=== PATIENT | male | born 1970 | race Caucasian/White ===

== ENCOUNTER 2019-04-27 10:53 | Inpatient (IN) | payer MEDICAID ==
[~2019-04-27] VITALS: Ht 188 cm; Wt 93.0 kg
[2019-04-27 11:52] VITALS: BP_SYST 163
--- NOTE | 2019-04-27 12:01 | NUR ---
Patient to ER bed 08 to gown for evaluation. Side rails up.
--- NOTE | 2019-04-27 12:02 | NUR ---
Pt brought by self, A&Ox4, pt presents to ER with redness /swelling on nose, pt is being treated for cellulitis with ampicillin, skin pink and warm, cap refill <3, ambulatory, respirations even and unlabored.
--- NOTE | 2019-04-27 12:10 | NUR ---
ER at bedside examining patient.
[2019-04-27] MEDS ORDERED: NACL 0.9% 1,000 ML IV ONE (12:27)
[2019-04-27] MEDS ORDERED: MORPHINE 4 MG/ML INJ. SYRINGE IVP ONE (12:30)
[2019-04-27] MEDS ORDERED: CLINDAMYCIN 900 mg/50mL D5W 50 ML IV ONE (12:30)
[2019-04-27] MEDS ORDERED: ONDANSETRON HCL 4 MG/2 ML VIAL IVP ONE (12:30)
[2019-04-27] MEDS ORDERED: NS 1000 ML IV.SOLN IV ONE (12:30)
[2019-04-27 13:13] LABS: BASOPHILS # (AUTO) 0.1 K/uL (0.0-0.2); BASOPHILS % (AUTO) 0.4 % (0.0-2.0); EOSINOPHILS # (AUTO) 0.1 K/uL (0.0-0.4); EOSINOPHILS % (AUTO) 0.6 % (0.0-4.0); HEMATOCRIT 47.9 % (36-54); HEMOGLOBIN 16.1 g/dL (14.0-18.0); LYMPHOCYTES # (AUTO) 2.4 K/uL (1.0-5.5); LYMPHOCYTES % (AUTO) 13.1 % (20.5-51.5); MEAN CORPUSCULAR HEMOGLOBIN 32 pg (27-31); MEAN CORPUSCULAR HGB CONC 34 % (32-36); MEAN CORPUSCULAR VOLUME 95 fL (79.0-98.0); MONOCYTES # (AUTO) 1.8 K/uL (0.0-1.0); MONOCYTES % (AUTO) 10.1 % (1.7-9.3); NEUTROPHILS # (AUTO) 13.6 K/uL (1.8-7.7); NEUTROPHILS % (AUTO) 75.8 % (40.0-70.0); PLATELET COUNT (AUTO) 258 K/uL (130-430); RED BLOOD CELL COUNT(AUTO) 5.04 MIL/uL (4.2-6.2); RED CELL DISTRIBUTION WIDTH 12.6 % (9.0-15.0); WHITE BLOOD COUNT (AUTO) 17.9 K/uL (4.8-10.8)
[2019-04-27 13:26] LABS: CALCIUM 8.9 mg/dL (8.4-11.0); CREATININE 0.81 mg/dL (0.55-1.30); POTASSIUM 4.1 mmol/L (3.5-5.1)
[2019-04-27 13:29] LABS: PROTHROMBIN TIME 9.6 SECS (9.5-12.5)
[2019-04-27 13:31] LABS: TOTAL BILIRUBIN 0.5 mg/dL (0.0-1.0)
[2019-04-27] MEDS ORDERED: ACETAMINOPHEN 325 MG TABLET PO PRN ×2 (15:30→16:45)
[2019-04-27] MEDS ORDERED: NS 500 ML IV ONE (15:30)
--- NOTE | 2019-04-27 15:44 | NUR ---
MEDSURGPatient will be admitted to care of DR. DANIELLE. Admitted to MEDSURG unit. Will go to room 120B. Belongings list completed. Complete and up to date summary report printed. SBAR report to be given at bedside with opportunity for questions.
--- NOTE | 2019-04-27 15:49 | NUR ---
Admission Note Received patient from ER with diagnosis of facial cellulitis. Initial Plan of Care discussed-patient verbalized understanding. . Oriented to room, call light, pain management and safety.
[2019-04-27 16:11] VITALS: BP_SYST 154
[2019-04-27 16:20] VITALS: BP_SYST 154
--- NOTE | 2019-04-27 16:20 | NUR ---
Called consult to Dr. Hyatt's office regarding facial cellulitis, spoke with Helen.
[2019-04-27] MEDS ORDERED: SODIUM CHLORIDE 0.65% NASAL SPRAY NS PRN (16:45)
[2019-04-27] MEDS ORDERED: ONDANSETRON HCL 4 MG/2 ML VIAL IVP PRN (16:45)
[2019-04-27] MEDS ORDERED: NICOTINE 21 MG/24 HR PATCH.TD24 TD ONE (16:45)
[2019-04-27] MEDS ORDERED: VANCOMYCIN HCL 1,750 MG in NS 500 ML IV SCH (17:00)
--- NOTE | 2019-04-27 17:04 | NUR ---
ID consult called: for Dr. Littlejohn, regarding sinusitis, ordered by Dr. Arias, spoke with Tania.
[2019-04-27] MEDS: MORPHINE 4 MG/ML INJ. SYRINGE IVP PRN ×2 (17:47→22:27)
--- NOTE | 2019-04-27 17:52 | NUR ---
MORPHINE GIVEN Patient c/o nose pain 11/01, Morphine 3mg IVP given as ordered. No acute distress. Safety measure maintained. Call light within reached. Bed locked in low position, side rails up. Continue to monitor.
[2019-04-27] MEDS: VANCOMYCIN HCL 1,750 MG in NS 500 ML IV SCH (18:34)
--- NOTE | 2019-04-27 18:40 | NUR ---
CLOSING NOTE Patient resting in the bed. No acute distress. Skin warm and dry to touch. IV intact to LAC, no redness, no swelling, no drainage, infusing Vancomycin at this time. Safety measure maintained. Call light within reached. Bed locked in low position, side rails up. Refused bed alarm, risk and benefit explained. Will endorse to night nurse.
--- NOTE | 2019-04-27 19:03 | NUR ---
SEEN AND EXAMINED BY [facility]CO HEREDIA WITH ORDER RECEIVED.
--- NOTE | 2019-04-27 19:30 | NUR ---
SPECIMEN FROM LEFT NOSE OF WOUND SENT TO LAB.
[2019-04-27 20:05] VITALS: BP_SYST 152
--- NOTE | 2019-04-27 20:05 | NUR ---
Opening notes Pt resting in bed, eyes closed, VSS, afebrile, no s/s distress noted. L. nares crusty wound dry, no drainage noted. Nose swollen and erythema noted. Photo taken. Call light within reach. Bed low, locked, siderails up x2, pt ambulates to bathroom, steady gait. To monitor.
--- NOTE | 2019-04-27 20:25 | NUR ---
IV re-start IV L. AC leaking. Dc'd IV catheter tip intact, no active bleeding. Restarted new IV L. wrist 22G via aseptic technique, good blood return. Pt tolerated well. Continued IV Vanco as ordered. To monitor.
[2019-04-27] MEDS ORDERED: PIPERACILLIN/TAZO 4.5 GM in NS 100 ML IV ONE (22:00)
[2019-04-27] MEDS: PIPERACILLIN/TAZO 4.5 GM in NS 100 ML IV SCH (22:30)
[2019-04-28 00:05] VITALS: BP_SYST 137
--- NOTE | 2019-04-28 00:10 | NUR ---
Rounds Pt asleep, easily arousable, no s/s distress noted. VSS, afebrile. Call light remains within reach. Safety maintained. To monitor.
--- NOTE | 2019-04-28 04:10 | NUR ---
Rounds Pt asleep, easily arousable, no s/s distress noted. VSS, afebrile. Call light remains within reach. Safety maintained. Bed low, locked, siderails up x2. To monitor.
[2019-04-28] MEDS: PIPERACILLIN/TAZO 4.5 GM in NS 100 ML IV SCH ×2 (05:19→14:09)
[2019-04-28] MEDS: MORPHINE 4 MG/ML INJ. SYRINGE IVP PRN ×5 (05:32→23:59)
--- NOTE | 2019-04-28 05:32 | NUR ---
Closing notes Pt awake, c/o 8/10 pain/throat pain. Medicated with Morphine 3mg IVP as needed. IV antibiotic infusing at ordered rate L. wrist 22G clear and patent. Call light within reach. Safety maintained. To endorse to AM nurse.
[2019-04-28 06:37] LABS: BASOPHILS # (AUTO) 0.1 K/uL (0.0-0.2); BASOPHILS % (AUTO) 0.5 % (0.0-2.0); EOSINOPHILS # (AUTO) 0.2 K/uL (0.0-0.4); EOSINOPHILS % (AUTO) 1.1 % (0.0-4.0); HEMATOCRIT 44.4 % (36-54); HEMOGLOBIN 15.1 g/dL (14.0-18.0); LYMPHOCYTES # (AUTO) 2.7 K/uL (1.0-5.5); LYMPHOCYTES % (AUTO) 16.9 % (20.5-51.5); MEAN CORPUSCULAR HEMOGLOBIN 32 pg (27-31); MEAN CORPUSCULAR HGB CONC 34 % (32-36); MEAN CORPUSCULAR VOLUME 94 fL (79.0-98.0); MONOCYTES # (AUTO) 1.8 K/uL (0.0-1.0); MONOCYTES % (AUTO) 11.5 % (1.7-9.3); NEUTROPHILS # (AUTO) 11.2 K/uL (1.8-7.7); PLATELET COUNT (AUTO) 271 K/uL (130-430); RED CELL DISTRIBUTION WIDTH 12.4 % (9.0-15.0)
[2019-04-28] MEDS: VANCOMYCIN HCL 1,750 MG in NS 500 ML IV SCH ×2 (06:39→18:56)
[2019-04-28 06:58] LABS: ALBUMIN 3.5 g/dL (3.4-4.8); CALCIUM 8.6 mg/dL (8.4-11.0); CREATININE 0.72 mg/dL (0.55-1.30); POTASSIUM 4.5 mmol/L (3.5-5.1); TOTAL BILIRUBIN 0.9 mg/dL (0.0-1.0)
--- NOTE | 2019-04-28 07:40 | NUR ---
OPENING NOTES: RECEIVED PATIENT FROM CARTON REPAIRER NURSE. PATIENT IS ASLEEP LAYING DOWN IN BED. PATIENT IS TOLERATING OXYGEN AT ROOM AIR WITH NO SIGNS OF DISTRESS OR SHORTNESS OF BREATH NOTED. IV SITE IS PATENT WITH NO SIGNS OF INFILTRATION NOTED. PATIENT IN STABLE CONDITION. SAFETY, FALL AND ASPIRATION PRECAUTIONS ARE IN PLACE. BED IS LOCKED IN LOWEST POSITION WITH CALL LIGHT IN REACH. WILL CONTINUE TO MONITOR PATIENT FOR ANY CHANGES.
[2019-04-28 08:30] VITALS: BP_SYST 158
[2019-04-28] MEDS: NICOTINE 21 MG/24 HR PATCH.TD24 TD SCH (08:52)
--- NOTE | 2019-04-28 10:31 | NUR ---
RN ROUNDS: PATIENT IS AWAKE AND ALERT x4 LAYING DOWN IN BED. PATIENT STATES HIS PAIN IS TOLERABLE AT THE MOMENT. NO SIGNS OF DISTRESS OR SHORTNESS OF BREATH NOTED. PATIENT IN STABLE CONDITION. WILL CONTINUE TO MONITOR PATIENT FOR ANY CHANGES.
[2019-04-28 10:33] LABS: ERYTHROCYTE SEDIMENTATION RATE 29 MM/HR (0-15)
--- NOTE | 2019-04-28 12:28 | NUR ---
RN ROUNDS: PATIENT IS ASLEEP LAYING DOWN IN BED. NO SIGNS OF DISTRESS OR SHORTNESS OF BREATH NOTED. PATIENT IN STABLE CONDITION. WILL CONTINUE TO MONITOR PATIENT FOR ANY CHANGES.
[2019-04-28 13:04] VITALS: BP_SYST 139
--- NOTE | 2019-04-28 14:00 | NUR ---
RN ROUNDS: PATIENT IS AWAKE AND ALERT x4 LAYING DOWN IN BED. PATIENT STATES HIS PAIN IS AT AN 8/10. PRN PAIN MEDS TO BE GIVEN. PATIENT TOLERATING OXYGEN AT ROOM AIR WITH NO SIGNS OF DISTRESS OR SHORTNESS OF BREATH NOTED. PATIENT IN STABLE CONDITION. WILL CONTINUE TO MONITOR PATIENT FOR ANY CHANGES.
[2019-04-28 16:07] VITALS: BP_SYST 145
--- NOTE | 2019-04-28 16:27 | NUR ---
WOUND EVALUATION: Wound Consult received from Dr. Hyatt. Thank you, Dr. Hyatt, for the consult. Patient received in a [place] Bed with a mattress, awake, alert, and oriented. Patient is unable to turn independently. Shaun Score is a 21. Past Medical History: History of smoking. Patient admitted with severe cellulitis of Left Face and Nose. Patient reported that he removed a piece of concrete from his left nostril recently. Recent Labs: WBC 16.0, RBC 4.70, hemoglobin 15.1, hematocrit 44.4, ESR 29, Sodium 134, chloride 97. Electrolytes otherwise within normal limits. PTT 25.3. Microbiology: Blood culture results 2 in progress. Wound cultures from left nare including fungal/aerobic/anaerobic results in progress. Intrinsic factors that delay wound healing: Smoking. Extrinsic factors that delay wound healing: Decreased mobility. Wound Assessment: 1. Left Nare: Facial and nose cellulitis, present on admission, with edematous nasal tissue. Left side of face and entire nose are both erythematous. Wound with pustule present, with 90% brown scab, 10% yellow tissue, 10% pink tissue. No odor, scant yellow purulent drainage. Surrounding tissue is erythematous. Nose is warm to touch, but so is face, forehead, arms and chest. Wound measures 2.0 cm x 1.0 cm. Recommend: Cleanse wound with normal saline. Gently cover wound with Venelex ointment using cotton-tipped applicator. Apply Venelex ointment to foam dressing cut to size and gently place into Left Nare. Perform wound care daily, and as needed for dressing soiling or dislodgement. Take photos of inner nose/outer nose/reddened facial area daily per Dr. Hyatt. 2. Right Nare: Facial and nose cellulitis, present on admission, with edematous nasal tissue. No odor, no drainage. Nose is warm to touch, but so is face, forehead, arms and chest. Recommend: No dressing needed. Continue to monitor site qshift. Take photos of inner nose/outer nose/reddened facial area daily per Dr. Hyatt. Also recommend: Encourage patient to reposition every 2 hours with pillow support and off-load pressure areas with pillows for pressure re-distribution. Perform skin care and monitor skin integrity Q shift.
[2019-04-28] MEDS: SODIUM CHLORIDE 0.65% NASAL SPRAY NS SCH ×2 (17:32→21:18)
[2019-04-28] MEDS: BALSAM PERU/CASTOR OIL 60 GM OINT...G. TP SCH (17:52)
[2019-04-28] MEDS: AMPICILLIN SODIUM/SULBACTAM NA 3 GM in NS 100 ML IV SCH ×2 (17:52→21:19)
--- NOTE | 2019-04-28 18:50 | NUR ---
CLOSING NOTES: PATIENT IS AWAKE AND ALERT x4 LAYING DOWN IN BED. PATIENT IS TOLERATING OXYGEN AT ROOM AIR WITH NO SIGNS OF DISTRESS OR SHORTNESS OF BREATH NOTED. IV SITE IS PATENT WITH NO SIGNS OF INFILTRATION NOTED. PATIENT IN STABLE CONDITION. SAFETY, FALL AND ASPIRATION PRECAUTIONS REMAINED IN PLACE THROUGHOUT THE SHIFT. BED IS LOCKED IN LOWEST POSITION WITH CALL LIGHT IN REACH. WILL ENDORSE PATIENT CARE TO ONCOMING FOOD STYLIST NURSE.
[2019-04-28] MEDS: MUPIROCIN 2% TOPICAL OINTMENT 22 GM NS SCH (21:18)
[2019-04-28] MEDS: TEMAZEPAM 15 MG CAPSULE PO PRN ×2 (23:49→23:52)
[2019-04-28] MEDS: HYDROcodone/ACETAMIN 5-325 MG TAB (NORCO/ VICODIN) PO PRN ×2 (23:50→23:51)
[2019-04-29] VITALS: BP_SYST 139
[2019-04-29] MEDS: SODIUM CHLORIDE 0.65% NASAL SPRAY NS SCH ×6 (01:00→20:04)
[2019-04-29] MEDS: MORPHINE 4 MG/ML INJ. SYRINGE IVP PRN ×4 (05:44→20:04)
[2019-04-29] MEDS: AMPICILLIN SODIUM/SULBACTAM NA 3 GM in NS 100 ML IV SCH ×3 (05:53→17:09)
[2019-04-29] MEDS: VANCOMYCIN HCL 1,750 MG in NS 500 ML IV SCH ×2 (06:27→18:28)
[2019-04-29 07:31] LABS: CALCIUM 8.6 mg/dL (8.4-11.0); CREATININE 0.66 mg/dL (0.55-1.30); POTASSIUM 3.8 mmol/L (3.5-5.1)
--- NOTE | 2019-04-29 07:31 | NUR ---
OPENING NOTES: RECEIVED PATIENT FROM STEEL WELDER NURSE. PATIENT IS AWAKE AND ALERT x4 LAYING DOWN IN BED. PATIENT DENIES ANY PAIN AT THE MOMENT. PATIENT IS TOLERATING OXYGEN AT ROOM AIR WITH NO SIGNS OF DISTRESS OR SHORTNESS OF BREATH NOTED. IV SITE IS PATENT WITH NO SIGNS OF INFILTRATION NOTED. PATIENT IN STABLE CONDITION. SAFETY, FALL AND ASPIRATION PRECAUTIONS ARE IN PLACE. BED IS LOCKED IN LOWEST POSITION WITH CALL LIGHT IN REACH. WILL CONTINUE TO MONITOR PATIENT FOR ANY CHANGES.
[2019-04-29 07:58] LABS: BASOPHILS # (AUTO) 0.1 K/uL (0.0-0.2); BASOPHILS % (AUTO) 0.6 % (0.0-2.0); EOSINOPHILS # (AUTO) 0.3 K/uL (0.0-0.4); EOSINOPHILS % (AUTO) 2.2 % (0.0-4.0); HEMATOCRIT 40.7 % (36-54); HEMOGLOBIN 14.1 g/dL (14.0-18.0); LYMPHOCYTES # (AUTO) 2.3 K/uL (1.0-5.5); LYMPHOCYTES % (AUTO) 18.3 % (20.5-51.5); MEAN CORPUSCULAR HEMOGLOBIN 32 pg (27-31); MEAN CORPUSCULAR HGB CONC 35 % (32-36); MEAN CORPUSCULAR VOLUME 94 fL (79.0-98.0); MONOCYTES # (AUTO) 1.4 K/uL (0.0-1.0); MONOCYTES % (AUTO) 11.3 % (1.7-9.3); NEUTROPHILS # (AUTO) 8.4 K/uL (1.8-7.7); NEUTROPHILS % (AUTO) 67.6 % (40.0-70.0); PLATELET COUNT (AUTO) 279 K/uL (130-430); RED BLOOD CELL COUNT(AUTO) 4.34 MIL/uL (4.2-6.2); RED CELL DISTRIBUTION WIDTH 12.2 % (9.0-15.0); WHITE BLOOD COUNT (AUTO) 12.5 K/uL (4.8-10.8)
[2019-04-29 08:13] VITALS: BP_SYST 130
[2019-04-29] MEDS: NICOTINE 21 MG/24 HR PATCH.TD24 TD SCH (09:00)
[2019-04-29] MEDS: MUPIROCIN 2% TOPICAL OINTMENT 22 GM NS SCH ×2 (09:35→20:04)
[2019-04-29] MEDS: BALSAM PERU/CASTOR OIL 60 GM OINT...G. TP SCH (09:35)
[2019-04-29 12:00] VITALS: BP_SYST 143
--- NOTE | 2019-04-29 12:20 | NUR ---
RN ROUNDS/IV REINSERTION: PATIENT IS AWAKE AND ALERT x4 LAYING DOWN IN BED. IV SITE WAS PULLED OUT. CATHETER REMOVED AND INTACT WITH NO ACTIVE BLEEDING. NEW IV INSERTED IN RIGHT FOREARM 22G. ASEPTIC TECHNIQUE USED. PATIENT TOLERATED IT WELL. SUCCESSFUL AFTER ONE ATTEMPT. IV SITE PATENT WITH NO SIGNS OF INFILTRATION NOTED. PATIENT IN STABLE CONDITION. WILL CONTINUE TO MONITOR PATIENT FOR ANY CHANGES.
--- NOTE | 2019-04-29 14:15 | NUR ---
Nutrition Assessment (short note d/t high patient load) A - RD reviewed pertinent nutrition-related info via EMR (physician notes/nursing notes/labs/meds/nursing care trends/care activity). Admission Dx: Facial cellulitis Pt also found w/ sepsis per physician notes PMH: None per EMR Current Diet Order/Nutrition Support: Regular x2 days Ht: 74"/6'2" Wt: 205#/93 kg IBW: 190#/86 kg %IBW: 190#/86 kg UBW: 205#/93 kg %UBW: 100% BMI: 26.3 kg/m2 (overweight) Subjective Info: Nutrition Consult received for facial/nose cellulitis, L nare pustule/wound. Pt also seen high risk for Dx of sepsis. Pt was seen resting in bed, visually adequately-nourished for tall stature. Pt verified anthropometrics. Pt reported good appetite, tolerating diet well. Pt reported use of MVI, VIT C and D. Pt stated that he generally avoids bread, pork, red meat, and sodas, and tries to drink mostly water. Current diet is adequate/appropriate. Pt was not interested in nutrition education when offered by RD. ESTIMATED NUTRITIONAL NEEDS CALORIES/DAY: 7635-7335 kcal/day (30-35 kcal/kg CBW for sepsis, wound healing) PROTEIN/DAY: 140-186 gm/day (1.5-2 gm/kg CBW for sepsis, wound healing) FLUID/DAY: 2.8-3.3 L/day (1 ml/kcal/day for maintenance) D - Increased nutritional needs related to metabolic demands as evidenced by estimated nutritional requirements for sepsis. I - Recommend continuing regular diet M - Monitor appetite and PO intakes w/ goal of pt meeting at least 75% of estimated nutritional needs, labs trending WNL, normal GI function, and skin integrity/wt maintenance E - Low risk; RD to F/U within 7 days
--- NOTE | 2019-04-29 14:20 | NUR ---
Dietitian Recommendations * Recommend continuing regular diet LP, RD Please refer to Nutrition Assessment for details.
--- NOTE | 2019-04-29 14:41 | NUR ---
RN ROUNDS: PATIENT IS ASLEEP LAYING DOWN IN BED. NO SIGNS OF DISTRESS OR SHORTNESS OF BREATH NOTE. PATIENT IN STABLE CONDITION. WILL CONTINUE TO MONITOR PATIENT FOR ANY CHANGES.
--- NOTE | 2019-04-29 16:20 | NUR ---
RN ROUNDS: PATIENT IS AWAKE AND ALERT x4 LAYING DOWN IN BED. NO SIGNS OF DISTRESS OR SHORTNESS OF BREATH NOTED. PATIENT IN STABLE CONDITION. WILL CONTINUE TO MONITOR PATIENT FOR ANY CHANGES.
[2019-04-29 16:30] VITALS: BP_SYST 140
--- NOTE | 2019-04-29 18:50 | NUR ---
CLOSING NOTES: PATIENT IS AWAKE AND ALERT x4 LAYING DOWN IN BED. PATIENT IS TOLERATING OXYGEN AT ROOM AIR WITH NO SIGNS OF DISTRESS OR SHORTNESS OF BREATH NOTED. IV SITE IS PATENT WITH NO SIGNS OF INFILTRATION NOTED. PATIENT IN STABLE CONDITION. SAFETY, FALL AND ASPIRATION PRECAUTIONS REMAINED IN PLACE THROUGHOUT THE SHIFT. BED IS LOCKED IN LOWEST POSITION WITH CALL LIGHT IN REACH. WILL ENDORSE PATIENT CARE TO ONCOMING LUMBER GRADER NURSE.
--- NOTE | 2019-04-29 19:30 | NUR ---
Opening notes Received report. Patient is resting in bed. No signs of distress noted. Breathing even and unlabored. IV patent and intact, infusing abx. Redness and slight swelling noted to left nostril. No complaints of pain at this time. No needs. call light with the patient. Safety precautions in place.
[2019-04-29 20:44] VITALS: BP_SYST 116
--- NOTE | 2019-04-29 21:00 | NUR ---
Medications scheduled and prn pain medications given. Educated the action and side effects of medications. Patient verbalized understanding and tolerated well. No other needs. Call light with the patient. Safety precautions in place.
--- NOTE | 2019-04-29 23:30 | NUR ---
Resting Patient resting, watching TV. No signs of distress noted. Breathing even and unlabored. No needs at this time. Call light with the patient. Safety precautions in place.
[2019-04-30 00:30] VITALS: BP_SYST 112
[2019-04-30] MEDS: AMPICILLIN SODIUM/SULBACTAM NA 3 GM in NS 100 ML IV SCH ×3 (00:35→11:20)
[2019-04-30] MEDS: SODIUM CHLORIDE 0.65% NASAL SPRAY NS SCH ×4 (00:37→12:17)
[2019-04-30] MEDS: VANCOMYCIN HCL 1,250 MG in NS 250 ML IV SCH ×2 (01:56→12:16)
--- NOTE | 2019-04-30 02:00 | NUR ---
Sleeping No signs of distress noted. Breathing even and unlabored. IV ABX infusing. No needs. Call light with the patient. Safety precautions in place.
--- NOTE | 2019-04-30 04:33 | NUR ---
Sleeping No signs of distress noted. Breathing even and unlabored. call light with the patient. Safety precautions in place.
--- NOTE | 2019-04-30 06:50 | NUR ---
Closing notes Patient resting in bed. No signs of distress noted. Breathing even and unlabored. IV patent and intact, no signs of infiltration noted. No complaints of pain. All needs met throughout the shift. Call light with the patient. Safety precautions in place. Will endorse care to day shift RN.
--- NOTE | 2019-04-30 08:00 | NUR ---
ASSUMPTION OF CARE: RECEIVED PT A/A/OX4, DX:PAIN, R/T FACIAL CELLULITIS, CURRENTLY DENIES HAVING ANY PAIN, VS WNL, NO S/S OF DISTRESS, RESTING IN POSITION OF COMFORT, BREATHING EASY, HAS SOME REDNESS AND SWELLING TO NOSE AND NARES, STATES "I BELIEVE IT'S GETTING MUCH BETTER", IV SITE INTACT, PATENT, NO REDNESS OR SWELLING, ORIENTED TO UNIT, CALL LIGHT PLACED WITHIN REACH, WILL CONT' TO MONITOR AND ASSESS.
[2019-04-30 08:40] VITALS: BP_SYST 119
--- NOTE | 2019-04-30 09:00 | NUR ---
SET UP AND LAY OUT INSPECTOR: MORNING MEDS GIVEN, PER ORDERED BY Jeff, TOLERATED WELL, WILL CONT' TO MONITOR, WILL CONT' WITH POC.
[2019-04-30] MEDS: BALSAM PERU/CASTOR OIL 60 GM OINT...G. TP SCH (10:16)
[2019-04-30] MEDS: MUPIROCIN 2% TOPICAL OINTMENT 22 GM NS SCH (10:16)
[2019-04-30] MEDS: NICOTINE 21 MG/24 HR PATCH.TD24 TD SCH (10:16)
--- NOTE | 2019-04-30 11:00 | NUR ---
VISIT: DR. DANIELLE AT BEDSIDE FOR ASSESSMENT OF PT, NEW ORDERS GIVEN, WILL CONT' WITH POC.
[2019-04-30] MEDS ORDERED: AMOX-426 PO (11:37)
[2019-04-30] MEDS ORDERED: DOXY100C PO (11:39)
[2019-04-30] MEDS ORDERED: LACT1TAB21 PO (11:41)
[2019-04-30] MEDS ORDERED: BACTROBAN TP (11:49)
--- NOTE | 2019-04-30 12:00 | NUR ---
NURSES NOTES: PT REMAINS STABLE, ASLEEP IN BED, EASILY AROUSED VIA VERBAL STIMULI, NO SIGNIFICANT CHANGES NOTED AT THIS TIME, NEEDS MET, IRIS LIGHT PLACED WITHIN REACH, WILL CONT' TO MONITOR AND ASSESS.
[2019-04-30 12:19] VITALS: BP_SYST 115
--- NOTE | 2019-04-30 13:30 | NUR ---
DISCHARGE: PT HAS ORDER FOR DISCHARGE TO HOME, F/U IN [facility] WITH [facility] IN ONE WEEK, VERBALIZES UNDERSTANDING, PROVIDE WITH A LIST OF THE [facility] FACILITIES. CONDITION IS STABLE, ALL BELONGINGS ACCOUNTED FOR AND RETURNED TO PT, ACCOMPANIED BY STAFF TO PARKING LOT WITH STEADY GAIT.
--- NOTE | 2019-04-30 13:30 | NUR ---
Per RN request YAMILETH provided Pt. with [facility] list for follow up care. He received the info, no further inquiry
[2019-04-30 14:25] VITALS: BP_SYST 115
== END 2019-04-30 16:25 | disposition home or self-care (01) | DRG 720 ==
LOC: SED 10:53 → SMU 15:24
PROVIDERS: ADMIT Internal Medicine; ATTEND Internal Medicine
DX: A41.9 Sepsis, unspecified organism (principal); E87.1 Hypo-osmolality and hyponatremia; F17.210 Nicotine dependence, cigarettes, uncomplicated; J01.90 Acute sinusitis, unspecified; L71.1 Rhinophyma; L03.211 Cellulitis of face; Z79.899 Other long term (current) drug therapy
CPT/HCPCS: 36415; 70450-TC; 70486-TC; 71045; 80048; 80053; 80202-TC; 82150-TC; 82550-TC; 83605; 83690-TC; 84484; 85025; 85610-TC; 85651-TC; 85730-TC; 87040-TC; 87070-TC; 87075-TC; 87081; 87101; 87186-TC; 93005; 96361; 96365; 96375; 99285; J0295; J2270; J2405; J2543; J3370; J3490; J7030; J7040; J7050